=== PATIENT | male | born 1965 | race Native Hawaiian/Other Pacific Islander ===

== ENCOUNTER 2019-08-09 07:55 | Outpatient (CLI) | payer BC | END 2019-08-09 08:18 | disposition short-term general hospital (02) | LOC: AMB 07:55 | DX: R55 Syncope and collapse (principal); R10.9 Unspecified abdominal pain; R61 Generalized hyperhidrosis; R42 Dizziness and giddiness | CPT/HCPCS: A0425; A0427 ==